=== PATIENT | female | born 1970 | race Caucasian/White ===

== ENCOUNTER → 2017-08-13 | Outpatient (CLI) | payer OTHER ==
--- NOTE | 2017-08-13 16:04 | CT ---
EXAMINATION TYPE: CT brain wo con DATE OF EXAM: 08/13/2017 COMPARISON: NONE HISTORY: Cellulitis of left eye CT DLP: 1081.[address] of the brain was performed. The ventricles, basal cisterns and sulci overlying the cerebral convexities demonstrate a normal appe arance. There is no evidence for intracranial hemorrhage or sulcal effacement. No mass effects are seen. Osseous calvarium is intact. If symptoms persist consider MRI as clinically warranted. IMPRESSION: 1. No acute intracranial process is seen at this time.
--- NOTE | 2017-08-13 16:08 | CT ---
EXAMINATION TYPE: CT orbits wo con DATE OF EXAM: 08/13/2017 COMPARISON: NONE HISTORY: Cellulitis of left eye CT DLP: 312.3 mGycm Automated exposure control for dose reduction was used. Unenhanced CT of the orbits was performed in the axial and coronal planes. The lack of contrast limit s evaluation. FINDINGS: There may be mild thickening of the preseptal soft tissues on the left. Correlate for preseptal cellu litis. There is no evidence for orbital cellulitis. Retroconal fat is symmetric bilaterally without e vidence for inflammatory process. The globes are symmetric. No intra or extraconal mass is detected. Extraocular musculature appears symmetric bilaterally without abnormal thickening. Lacrimal glands ar e symmetric as well. Paranasal sinuses are well-aerated. IMPRESSION: CORRELATE FOR MILD PRESEPTAL CELLULITIS ON THE LEFT.
== END | disposition home or self-care (01) ==
LOC: RADCTMAIN 15:29
PROVIDERS: ATTEND Ophthalmology
DX: H05.012 Cellulitis of left orbit (principal)
CPT/HCPCS: 70450; 70480

== ENCOUNTER 2022-09-09 06:13 | Day surgery (SDC) | payer OTHER ==
[2022-09-08 08:34] VITALS: BMI 43.7
--- NOTE | 2022-09-08 19:01 | P.HPOB ---
History of Present Illness H&P Date: 09/08/22 Chief Complaint: Menorrhagia with irregular cycle, endometrial thickening on Tamoxifen This is a 52 y.o. female, 2, para 2, who presents for dilatation and curettage with hysteroscopy due to menorrhagia with irregular cycle. She is currently on Tamoxifen for breast cancer. Her menses are irregular occurring from 1 to 7 months apart and lasting 7 days, very heavy. Her pelvic ultrasound shows uterus 13.3 x 6 x 9.4 cm, with endometrial thickness of 2.35 cm in add ition to a 1 cm cyst-like area within. Her left ovary had 2 small cysts. OB Hx: . 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 Systems Constitutional: Reports night sweats, Denies chills, Denies fever Eyes: denies blurred vision, denies pain Ears, nose, mouth and throat: Denies headache, Denies sore throat Cardiovascular: Denies chest pain, Denies shortness of breath Respiratory: Denies cough Gastrointestinal: Denies abdominal pain, Denies diarrhea, Denies nausea, Denies vomiting Genitourinary: Reports abnormal vaginal bleeding, Reports menorrhagia, Reports pelvic pain Musculoskeletal: Reports low back pain, Reports myalgias Integumentary: Denies pruritus, Denies rash Neurological: Denies numbness, Denies weakness Psychiatric: Reports anxiety, Reports insomnia Past Medical History Past Medical History: Cancer, Hypertension Additional Past Medical History / Comment(s): HX RT BREAST CANCER. HX PNEUMONIA WITH COLLAPSED LUNG-NOVEMBER 2021-WAS IN [facility]. History of Any Multi-Drug Resistant Organisms: None Reported Past Surgical History: Breast Surgery, Section (x2) Additional Past Surgical History / Comment(s): RT BREAST LUMPECTOMY WITH 3 LYMPHONES REOVED Past Anesthesia/Blood Transfusion Reactions: No Reported Reaction Past Psychological History: Anxiety Smoking Status: Never smoker Past Alcohol Use History: None Reported Past Drug Use History: None Reported - Past Family History Mother Family Medical History: Diabetes Mellitus, Hypertension Medications and Allergies Home Medications Medication Instructions Recorded Confirmed Type Cetirizine HCl [Zyrtec] 10 mg PO DAILY 09/08/22 09/09/22 History Metoprolol Succinate [Metoprolol 25 mg PO DAILY 09/08/22 09/09/22 History Succinate ER] Montelukast [Singulair] 10 mg PO DAILY 09/08/22 09/09/22 History Tamoxifen Citrate [Nolvadex] 20 mg PO DAILY 09/08/22 09/09/22 History Allergies Allergy/AdvReac Type Severity Reaction Status Date / Time guaifenesin [From Mucinex] Allergy Rapid Verified 09/09/22 06:58 Heart Rate Exam Osteopathic Statement: *. No significant issues noted on an osteopathic structural exam other than those noted in the History and Physical/Consult. Intake and Output 09/08/22 09/08/22 09/08/22 06:59 14:59 22:59 Other: Weight 79.379 kg HEENT: within normal limits Heart: regular rate and rhythm Lungs: clear to auscultation bilaterally Abdomen: soft, non-tender Pelvic: uterus slightly enlarged, non-tender, no adnexal masses or tenderness Extremities: neg. Jordan's Assessment and Plan (1) Menorrhagia with irregular cycle Current Visit: No Status: Acute Code(s): N92.1 - EXCESSIVE AND FREQUENT MENSTRUATION WITH IRREGULAR CYCLE SNOMED Code(s): 013680209 (2) Endometrial thickening on ultrasound Current Visit: No Status: Acute Code(s): R93.89 - ABNORMAL FINDINGS ON DX IMAGING OF OTH BODY STRUCTURES SNOMED Code(s): 575415223 (3) Prophylactic use of tamoxifen (Nolvadex) Current Visit: No Status: Acute Code(s): Z79.810 - LNG TRM (CRNT) USE OF SLCTV ESTROG RECEPTOR MODULATORS SNOMED Code(s): 167024494 Plan: Proceed with dilatation and curettage with hysteroscopy. I have discussed the risks, benefits, and alternative therapies for the above- mentioned procedure and for both sedation/anesthesia as well as necessary blood products administration, if indicated, as they pertain to this patient. The patient has indicated her understanding and acceptance of the risks and procedures discussed.
[~2022-09-09 06:13] MED LIST: Pre Op ABX Message 1 EACH MISC MISCELLANE ONE
[2022-09-09] MEDS ORDERED: ONDANSETRON 4 MG/2 ML VIAL IVP ONE (06:23)
[2022-09-09] MEDS ORDERED: LACTATED RINGERS 1,000 ML IV SCH (06:23)
[2022-09-09] MEDS ORDERED: DEXAMETHASONE SOD PHOSPHATE 4 MG/ML 1 ML VIAL IV ONE (06:23)
[2022-09-09] MEDS ORDERED: SCOPOLAMINE 1 MG/72 HR PATCH TRANSDERM ONE (06:57)
[2022-09-09] MEDS ORDERED: HYDROmorphone 0.5 MG/0.5 ML SYRINGE IVP PRN (07:00)
[2022-09-09] MEDS ORDERED: PROPOFOL 10 MG/ML 20 ML VIAL IV ONE (07:24)
[2022-09-09] MEDS ORDERED: fentaNYL (PF) 50 MCG/ML 2 ML AMP ONE (07:24)
[2022-09-09] MEDS ORDERED: LIDOCAINE 2% INJ 20 MG/ML (2 ML VIAL) ONE (07:24)
--- NOTE | 2022-09-09 07:57 | P.OP ---
Date of Procedure: 09/09/22 Preoperative Diagnosis: Menorrhagia with irregular cycle Endometrial thickening on tamoxifen Postoperative Diagnosis: Same Procedure(s) Performed: Dilation and curettage with hysteroscopy Anesthesia: other (LMA general) Surgeon: Lulu Shea Estimated Blood Loss (ml): 10 Pathology: other (Endometrial curettings) Condition: stable Disposition: same day Indications for Procedure: This is a 52 y.o. female, 2, para 2, who presents for dilatation and curettage with hysteroscopy due to menorrhagia with irregular cycle. She is currently on Tamoxifen for breast cancer. Her menses are irregular occurring from 1 to 7 months apart and lasting 7 days, very heavy. Her pelvic ultrasound shows uterus 13.3 x 6 x 9.4 cm, with endometrial thickness of 2.35 cm in addition to a 1 cm cyst-like area within. Her left ovary had 2 small cysts. Operative Findings: Uterus is anteverted and bulky on palpation. No adnexal masses are palpated. Uterus is sounded to 11 cm. Upon hysteroscopy, several large polypoid type areas are noted. The left tubal ostia is visualized in the right tubal ostia is not visualized. A large amount of polypoid type tissue was obtained. Irregular contour was noted consistent with possible submucosal fibroids. Description of Procedure: The patient is taken to the operating room where she is placed in the dorsal lithotomy position. She is prepped and draped in the normal sterile fashion. Her bladder is drained with a catheter. Examination is performed under anesthesia. Uterus is found to be bulky, anteverted, with no adnexal masses palpated. Next a weighted speculum was placed in the patient's vagina. A right angle retractor was used to visualize the cervix. The anterior lip of the cervix was grasped with an Allis clamp. Uterus is sounded to 11 cm. Cervix is gently dilated with Ramos dilators until a hysteroscope could be passed. Hysteroscopy was performed using normal saline. The above-noted findings were made and pictures are taken. Next a polyp forceps was introduced with a large polypoid tissue removed. Next a medium-size sharp curet was introduced and sharp curettage was performed until a gritty texture was noted. A large amount of tissue was obtained. Next the Allis clamp is removed. No active bleeding is noted. All instruments are removed from the vagina. All sponge and needle counts are correct. The patient is then taken to recovery room in stable condition.
[2022-09-09 08:05] VITALS: TEMP 97.7
[2022-09-09] MEDS ORDERED: KETOROLAC 15 MG/ML 1 ML VIAL ONE (09:32)
[2022-09-09] MEDS ORDERED: KETOROLAC 15 MG/ML 1 ML VIAL IVP ONE (09:35)
[2022-09-09 10:10] VITALS: BP 124/61; PULSE 64; RESP 14
== END 2022-09-09 10:35 | disposition home or self-care (01) ==
LOC: OR 06:13
PROVIDERS: ATTEND Obstetrics & Gynecology
DX: N85.00 Endometrial hyperplasia, unspecified (principal); N92.1 Excessive and frequent menstruation with irregular cycle; N84.0 Polyp of corpus uteri; I10 Essential (primary) hypertension; F41.9 Anxiety disorder, unspecified; Z83.3 Family history of diabetes mellitus; Z85.3 Personal history of malignant neoplasm of breast; Z82.49 Family history of ischemic heart disease and other diseases of the circulatory system; Z79.899 Other long term (current) drug therapy; Z79.810 Long term (current) use of selective estrogen receptor modulators (SERMs)
CPT/HCPCS: 81025; 88305; 58558; J1100; J2405; J3010; J1885; J2704; J2001